=== PATIENT | male | born 1965 | race Caucasian/White ===

== ENCOUNTER 2024-05-13 21:05 | Emergency (ER) | payer MEDICAID ==
[~2024-05-13] VITALS: Ht 165.1 cm; Wt 76.5 kg
[2024-05-13 21:28] VITALS: O2SAT 98
[2024-05-13] MEDS ORDERED: AMLODIPINE 10MG TABLET PO ONE (23:00)
[2024-05-13] MEDS: AMLODIPINE 5MG TABLET PO NR (23:30)
[2024-05-13 23:44] VITALS: BP 149/86; PULSE 73; RESP 17; TEMP 36.83628; O2SAT 98
== END 2024-05-13 23:45 | disposition home or self-care (01) ==
LOC: ER 21:05
DX: I10 Essential (primary) hypertension (principal)
CPT/HCPCS: 99283